=== PATIENT | male | born 1970 | race Caucasian/White ===

== ENCOUNTER 2020-12-17 21:55 | Emergency (ER) | payer OTHER ==
[~2020-12-17] VITALS: Ht 175.3 cm; Wt 79.5 kg
[2020-12-18] MEDS ORDERED: triamcinolone acetonide 40mg/ml inj IM ONE (00:45)
[2020-12-18 00:58] VITALS: BP 139/82
== END 2020-12-18 00:59 | disposition home or self-care (01) ==
LOC: ER 21:57
DX: L23.7 Allergic contact dermatitis due to plants, except food (principal); R10.30 Lower abdominal pain, unspecified; B99.9 Unspecified infectious disease
CPT/HCPCS: 96372; 99283; J3301